=== PATIENT | male | born 1960 | race Two or more races ===

== ENCOUNTER 2023-03-20 18:15 | Emergency (ER) | payer OTHER ==
[~2023-03-20] VITALS: Ht 167.6 cm; Wt 105.5 kg
[2023-03-20 18:53] LABS: Basophils # (auto) 0.1 10 ^3/uL (0-0.2); Basophils % (auto) 0.7 % (0.0-2.0); Eosinophils # (auto) 0.1 10 ^3/uL (0-0.8); Eosinophils % (auto) 0.5 % (0.0-7.0); Hematocrit 45.7 % (41.0-53.0); Hemoglobin 15.6 g/dL (13.5-17.5); Lymphocytes # (auto) 3.1 10 ^3/uL (0.4-5.4); Lymphocytes % (auto) 27.3 % (10.0-50.0); Mean Corpuscular Hemoglobin 29.1 pg (28.0-32.0); Mean Corpuscular Volume 85.5 fL (80.0-100.0); Monocytes # (auto) 0.8 10 ^3/uL (0-1.3); Monocytes % (auto) 7.3 % (0.0-12.0); Neutrophils # (auto) 7.3 10 ^3/uL (1.6-8.6); Neutrophils % (auto) 64.2 % (37.0-80.0); Nucleated Red Blood Cells % 0.4 %; Red Blood Cells 5.34 10^6/uL (4.5-5.90); Red Cell Distribution Width 14.1 % (11.8-14.3); White Blood Cell 11.3 10^3/uL (4.4-10.8)
[2023-03-20 19:11] LABS: Albumin 4.1 g/dL (3.4-5.0); BUN/Creatinine Ratio 16.8 (10.0-20.0); Calcium 8.9 mg/dL (8.5-10.1); Potassium 3.7 mmol/L (3.5-5.1)
[2023-03-20 19:13] LABS: Bilirubin, Total 2.4 mg/dL (0.2-1.0); Total Protein 6.9 g/dL (6.4-8.2)
[2023-03-20 23:16] VITALS: BP 144/98; PULSE 98; RESP 20; TEMP 98; O2SAT 100
[2023-03-20] MEDS ORDERED: RIV20T PO (23:35)
== END 2023-03-20 23:47 | disposition home or self-care (01) ==
LOC: ER 18:15
DX: I48.91 Unspecified atrial fibrillation (principal); R07.89 Other chest pain
CPT/HCPCS: 36415; 71046; 80053; 83880; 84484; 85025; 93005

== ENCOUNTER 2025-06-17 07:27 | Emergency (ER) | payer OTHER ==
[~2025-06-17] VITALS: Ht 170.2 cm; Wt 107.0 kg
[~2025-06-17 07:27] MED LIST: RIV20T PO
--- NOTE | 2025-06-17 07:41 | ED.PDOC ---
HPI Comments 65 y.o male with PMHx of SC, HTN, HLD, and AFIB, presents to the ED for a chief complaint of palpitations associated with SOB that started 5 days ago. Patient reports ongoing irregular heart rate detected by his apple watch with the "thumping" sensation. Patient was seen by his house supervisor on 06/03/25 but states then did not experience these symptoms. He denies any nausea, vomiting, diarrhea, abdominal pain, fever, chills or leg swelling. He denies any substance, alcohol or tobacco use. Chief Complaint: Palpitations Time Seen by MD: 07:32 Primary Care Provider: ALFRED Reviewed Notes: Nurses Notes, Medications, Allergies Allergies: Coded Allergies: NO KNOWN ALLERGIES (Unverified , 03/20/23) Home Meds Active Scripts Apixaban Base (ELIQUIS) 5 Mg Tab, 5 MG PO BID for 30 Days, #60 TAB 0 Refills Prov:DONNA TOVAR DO 06/17/25 Metoprolol Tartrate (Metoprolol Tartrate) 50 Mg Tab, 50 MG PO BID for 30 Days, #60 TAB 0 Refills Prov:DONNA TOVAR DO 06/17/25 Rivaroxaban (Xarelto Tablet) 20 Mg Tb, 20 MG PO DAILY, #30 TAB Prov:DILLAN SCHULZ 03/20/23 Information Source: Patient Mode of Arrival: Ambulatory Severity: Moderate Timing: Days (5) Duration: Since onset Onset: At Rest Cardiac Risk Factors: Hyperlipidemia, HTN PE Risk Factors: None History of: SC Modifying Factors: Nothing Associated Signs and Symptoms: SOB, Palpitations Past Medical History PAST MEDICAL HISTORY: AFIB, High Lipids, HTN, SC Surgical History: Hernia Repair Family History Family History: Family hx of heart lance, Family hx of stroke Social History Smoker: Non-Smoker Alcohol: Denies ETOH Use Drugs: Denies Drug Use Lives In: Home Constitutional: denies: chills, diaphoresis, fatigue, fever, malaise, sweats, weakness, others EENTM: denies: blurred vision, double vision, ear bleeding, ear discharge, ear drainage, ear pain, ear ringing, eye pain, eye redness, hearing loss, mouth pain, mouth swelling, nasal discharge, nose bleeding, nose congestion, nose pain, photophobia, tearing, throat pain, throat swelling, voice changes, others Respiratory: reports: SOB at rest, shortness of breath; denies: cough, hemoptysis, orthopnea, SOB with excertion, stridor, wheezing, others Cardiovascular: reports: palpitations; denies: chest pain, dizzy spells, diaphoresis, Dyspnea on exertion, edema, irregular heart beat, left arm pain, lightheadedness, PND, syncope, others Gastrointestinal: denies: abdomen distended, abdominal pain, blood streaked bowels, constipated, diarrhea, dysphagia, difficulty swallowing, hematemesis, melena, nausea, poor appetite, poor fluid intake, rectal bleeding, rectal pain, vomiting, others Genitourinary: denies: burning, dysuria, flank pain, frequency, hematuria, incontinence, penile discharge, penile sore, pain, testicle pain, testicle swelling, urgency, others Neurological: denies: dizziness, fainting, headache, left sided numbness, left sided weakness, numbness, paresthesia, pre-existing deficit, right sided numbness, right sided weakness, seizure, speech problems, tingling, tremors, weakness, others Musculoskeletal: denies: back pain, gout, joint pain, joint swelling, muscle pain, muscle stiffness, neck pain, others Integumetry: denies: bruises, change in color, change in hair/nails, dryness, laceration, lesions, lumps, rash, wounds, others Allergic/Immunocompromised: denies: Difficulty Healing, Frequent Infections, Hives, Itching, others Hematologic/Lymphatic: denies: anemia, blood clots, easy bleeding, easy bruising, swollen glands, others Endocrine: denies: excessive hunger, excessive sweating, excessive thirst, excessive urination, flushing, intolerance to cold, intolerance to heat, unexplained weight gain, unexplained weight loss, others Psychiatric: denies: anxiety, bipolar disorder, depression, hopeless, panic disorder, schizophrenia, sleepless, suicidal, others All Other Systems: Reviewed and Negative Physical Exam General Appearance: No Apparent Distress HEENT: Normal ENT Inspection, Pharynx Normal, TMs Normal Neck: Full Range of Motion, Non-Tender, Normal, Normal Inspection Respiratory: Chest Non-Tender, Lungs Clear, No Accessory Muscle Use, No Respiratory Distress, Normal Breath Sounds Cardiovascular: Irregular, No Edema, No JVD, No Murmur, No Gallop, Tachycardia Breast Exam: Deferred Gastrointestinal: No Organomegaly, Non Tender, No Pulsatile Mass, Normal Bowel Sounds, Soft Genitalia: Deferred Pelvic: Deferred Rectal: Deferred Extremities: No calf tenderness, Normal capillary refill, Normal inspection, Normal range of motion, Non-tender, No pedal edema Musculoskeletal : Apperance: Normal Neurologic: 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 Was a procedure done?: No CP Differential Dx Differential Diagnosis: A-fib, Angina, Electrolyte Disorder, Sinus Tachycardia X-Ray, Labs, Meds, VS Vital Signs Date Time Temp Pulse Resp B/P (MAP) Pulse Ox O2 Delivery O2 Flow Rate FiO2 06/17/25 12:10 87 136/91 06/17/25 10:40 90 06/17/25 09:13 80 06/17/25 07:41 102 06/17/25 07:34 102 06/17/25 07:28 97.6 91 18 153/104 97 97.6 Lab Test 06/17/25 08:37 06/17/25 07:40 Range/Units Troponin I High Sensitivity 4 4 </=54 ng/L White Blood Count 10.1 4.4-10.8 10^3/uL Red Blood Count 5.86 4.5-5.90 10^6/uL Hemoglobin 17.2 13.5-17.5 g/dL Hematocrit 50.0 41.0-53.0 % Mean Corpuscular Volume 85.3 80.0-100.0 fL Mean Corpuscular Hemoglobin 29.3 28.0-32.0 pg Mean Corpuscular Hemoglobin Concent 34.4 32.0-36.0 g/dL Red Cell Distribution Width 13.8 11.8-14.3 % Platelet Count 204 140-450 10^3/uL Mean Platelet Volume 10.4 6.9-10.8 fL Neutrophils (%) (Auto) 75.6 37.0-80.0 % Lymphocytes (%) (Auto) 16.9 10.0-50.0 % Monocytes (%) (Auto) 6.1 0.0-12.0 % Eosinophils (%) (Auto) 0.6 0.0-7.0 % Basophils (%) (Auto) 0.8 0.0-2.0 % Neutrophils # (Auto) 7.6 1.6-8.6 10 ^3/uL Lymphocytes # (Auto) 1.7 0.4-5.4 10 ^3/uL Monocytes # (Auto) 0.6 0-1.3 10 ^3/uL Eosinophils # (Auto) 0.1 0-0.8 10 ^3/uL Basophils # (Auto) 0.1 0-0.2 10 ^3/uL Nucleated Red Blood Cells 0.1 % Sodium Level 141 136-145 mmol/L Potassium Level 4.0 3.5-5.1 mmol/L Chloride Level 105 98-107 mmol/L Carbon Dioxide Level 25 20-31 mmol/L Anion Gap 11 5-15 Blood Urea Nitrogen 9 9-23 mg/dL Creatinine 1.14 0.700-1.30 mg/dL Glomerular Filtration Rate Calc 72 >90 mL/min BUN/Creatinine Ratio 7.9 L 10.0-20.0 Serum Glucose 148 H 74-106 mg/dL Calcium Level 9.1 8.7-10.4 mg/dL Magnesium Level 2.2 1.6-2.6 mg/dL B-Type Natriuretic Peptide 142.79 0-100 pg/mL Current Medications Medications (Trade) Dose Ordered Sig/Danie Route Start Time Stop Time Status Last Admin Aspirin 162 mg ONCE ONCE PO 06/17/25 07:45 06/17/25 08:00 DC 06/17/25 07:57 Metoprolol Tartrate (Lopressor Tablet) 50 mg ONCE ONCE PO 06/17/25 10:30 06/17/25 10:31 DC 06/17/25 12:10 IV Hep-Lock was established. For the elevated heart rate the patient was given Lopressor 50 mg p.o.. The patient was also given aspirin 162 mg by mouth. The patient's CBC and chemistry panel are within normal limits The troponin level is negative At this time, the patient has a [facility] patient The patient was evaluated by the [facility] doctor and they are setting the patient up for outpatient management. The patient had a prescription sent to address the atrial fibrillation. The patient also has an appointment with the house supervisor The patient is being discharged at this time Images Reviewed?: Images reviewed and evaluated by me Time of 1ST Reevaluation: 07:40 Reevaluation 1ST: Unchanged Patient Education/Counseling: Diagnosis, Treatment, Prognosis Family Education/Counseling: No Family Present SEPSIS Sepsis Screen Date sepsis recognized/suspect: Jun 17, 2025 Time Sepsis recognized/suspect: 728 Recent Procedure: No On Antibiotic Therapy: No Respiratory Rate >20: No Heart Rate >90: No Temp<36 C (96.8 F) or >38.3 C: No SBP <90 or MAP <65 mmHG: No New Acute Mental Status Change: No Is the patient on CPAP, BIPAP,: No Physician Orders Heplock Iv (06/17/25 07:36) Hand Cell Tuber (06/17/25 07:36) Blood Pressure (06/17/25 07:36) Pulse Oximetry (06/17/25 07:36) Urinalysis (06/17/25 07:36) Electrocardigram (06/17/25 07:36) Electrocardigram (06/17/25 08:36) Electrocardigram (06/17/25 10:36) Chest Portable (06/17/25 07:40) Thyroid Stimulating Hormone (06/17/25 11:59) Free T4 (Free Thyroxine) (06/17/25 11:59) Vital Signs Date Time Temp Pulse Resp B/P (MAP) Pulse Ox O2 Delivery O2 Flow Rate FiO2 06/17/25 12:10 87 136/91 06/17/25 10:40 90 06/17/25 09:13 80 06/17/25 07:41 102 06/17/25 07:34 102 06/17/25 07:28 97.6 91 18 153/104 97 97.6 Laboratory Tests Test 06/17/25 07:40 White Blood Count 10.1 10^3/uL (4.4-10.8) Medications Medications Dose Ordered Sig/Danie Route Start Time Stop Time Status Last Admin Dose Admin Aspirin 162 mg ONCE ONCE PO 06/17/25 07:45 06/17/25 08:00 DC 06/17/25 07:57 Metoprolol Tartrate 50 mg ONCE ONCE PO 06/17/25 10:30 06/17/25 10:31 DC 06/17/25 12:10 Departure 1 Departure Time of Disposition: 12:17 Impression: Primary Impression: New onset a-fib Disposition: HOME / SELF CARE / HOMELESS Condition: Fair e-Prescriptions Apixaban Base (ELIQUIS) 5 Mg Tab 5 MG PO BID for 30 Days, #60 TAB 0 Refills Prov: DONNA TOVAR DO 06/17/25 Metoprolol Tartrate (Metoprolol Tartrate) 50 Mg Tab 50 MG PO BID for 30 Days, #60 TAB 0 Refills Prov: DONNA TOVAR DO 06/17/25 Discharged With: Self Critical Care Note Critical Care Time?: No Stability Stability form required: No Heart Score Heart Score: Heart Score Response (Comments) Value History Moderate Suspicious 1 EKG Repolarization Disturb 1 Age 45-64 1 Risk Factors 1 or 2 risk factors 1 Troponin Normal limit 0 Total 4 I personally scribed for KELLEY GRIFFITH MD ([email or web address]) on 06/17/25 at 07:41. Electronically submitted by Raya Pollack ([facility]). KELLEY GRIFFITH MD Jun 17, 2025 07:41
[2025-06-17 07:56] LABS: Hematocrit 50.0 % (41.0-53.0); Hemoglobin 17.2 g/dL (13.5-17.5); Mean Corpuscular Hemoglobin 29.3 pg (28.0-32.0); Mean Corpuscular Volume 85.3 fL (80.0-100.0); Nucleated Red Blood Cells % 0.1 %
[2025-06-17 08:01] VITALS: PULSE 95; RESP 12; TEMP 98; O2SAT 96
[2025-06-17 08:01] LABS: Chloride 105 mmol/L (98-107); Potassium 4.0 mmol/L (3.5-5.1); Sodium 141 mmol/L (136-145)
[2025-06-17 08:02] LABS: Anion Gap 11 (5-15); Calcium 9.1 mg/dL (8.7-10.4); Carbon Dioxide 25 mmol/L (20-31)
[2025-06-17 08:07] LABS: BUN/Creatinine Ratio 7.9 (10.0-20.0); Blood Urea Nitrogen 9 mg/dL (9-23); Glucose 148 mg/dL (74-106)
[2025-06-17 08:08] LABS: Magnesium 2.2 mg/dL (1.6-2.6)
--- NOTE | 2025-06-17 08:50 | DVH ---
INDICATION: Palpitations TECHNIQUE: Frontal view of the chest. COMPARISON: XY CHEST TWO VIEWS ROUTINE on DOS: 03/20/23 FINDINGS: . The heart and mediastinal contours are grossly unremarkable. There is no evidence of pleural disease. The lungs are clear. The bony structures of the chest are intact without fracture. IMPRESSION: 1. No evidence of acute disease.
[2025-06-17] MEDS ORDERED: APIX5TAB PO ×2 (10:42→10:44)
[2025-06-17] MEDS ORDERED: METO-158 PO (10:42)
--- NOTE | 2025-06-17 12:04 | DVHDS2 ---
Discharge Summary Date of Admission Date of Discharge: Jun 17, 2025 Labs/Diagnostic Data: Laboratory Results Test 06/17/25 08:37 06/17/25 07:40 Troponin I High Sensitivity 4 ng/L (</=54) White Blood Count 10.1 10^3/uL (4.4-10.8) Red Blood Count 5.86 10^6/uL (4.5-5.90) Hemoglobin 17.2 g/dL (13.5-17.5) Hematocrit 50.0 % (41.0-53.0) Mean Corpuscular Volume 85.3 fL (80.0-100.0) Mean Corpuscular Hemoglobin 29.3 pg (28.0-32.0) Mean Corpuscular Hemoglobin Concent 34.4 g/dL (32.0-36.0) Red Cell Distribution Width 13.8 % (11.8-14.3) Platelet Count 204 10^3/uL (140-450) Mean Platelet Volume 10.4 fL (6.9-10.8) Neutrophils (%) (Auto) 75.6 % (37.0-80.0) Lymphocytes (%) (Auto) 16.9 % (10.0-50.0) Monocytes (%) (Auto) 6.1 % (0.0-12.0) Eosinophils (%) (Auto) 0.6 % (0.0-7.0) Basophils (%) (Auto) 0.8 % (0.0-2.0) Neutrophils # (Auto) 7.6 10 ^3/uL (1.6-8.6) Lymphocytes # (Auto) 1.7 10 ^3/uL (0.4-5.4) Monocytes # (Auto) 0.6 10 ^3/uL (0-1.3) Eosinophils # (Auto) 0.1 10 ^3/uL (0-0.8) Basophils # (Auto) 0.1 10 ^3/uL (0-0.2) Nucleated Red Blood Cells 0.1 % Sodium Level 141 mmol/L (136-145) Potassium Level 4.0 mmol/L (3.5-5.1) Chloride Level 105 mmol/L (98-107) Carbon Dioxide Level 25 mmol/L (20-31) Anion Gap 11 (5-15) Blood Urea Nitrogen 9 mg/dL (9-23) Creatinine 1.14 mg/dL (0.700-1.30) Glomerular Filtration Rate Calc 72 mL/min (>90) BUN/Creatinine Ratio 7.9 (10.0-20.0) Serum Glucose 148 mg/dL (74-106) Calcium Level 9.1 mg/dL (8.7-10.4) Magnesium Level 2.2 mg/dL (1.6-2.6) B-Type Natriuretic Peptide 142.79 pg/mL (0-100) Other Laboratory Tests 06/17/25 07:40 Brief Hx & Hospital Course: Patient is a 65 past medical history of hypertension, atrial fibrillation on metoprolol ER but not anticoagulation, who presents with complaints of palpitations. Patient arrived to the ER with vitals notable for hypertension blood pressure noted to be 153/104 with pulse fluctuating from 91-102. CBC was done which was within normal limits. BMP was done which was also within normal limits. Troponin was nonelevated x 2. BNP was nonelevated. Chest x-ray was done which did not reveal any acute disease. TSH was ordered. Patient was started on metoprolol to tartrate 50 mg p.o. and his heart rate improved to the 80s and 90s. Patient was monitored for several hours. Chart review shows that patient takes amlodipine 10 mg daily, Lipitor 40 mg and metoprolol XL 25 mg extended release daily. Patient will be discharged on metoprolol to tartrate 50 mg p.o. twice daily and is to hold his amlodipine if SBP less than 120 on manual blood pressure checks at home. Patient will continue atorvastatin 40 mg p.o. daily as well. Patient was also discharged on Eliquis 5 mg p.o. twice daily given [id number] score of 1 with new onset atrial fibrillation. Medications sent to in-house hospital pharmacy for patient pick-up. An appointment is made stat with cardiology for follow-up for new onset atrial fibrillation and for TTE evaluation. Appointment scheduled on 06/[address] Cazares. Patient aware. Patient was monitored for several hours. Vitals were noted to be stable prior to discharge. He was given ER return precautions. [facility] case management coordinating close follow-up and monitoring. Condition at Discharge: Good Final Diagnosis/Problems List Atrial Fibrillation Secondary Diagnosis: Hypertension Discharge Disposition: Home Discharge Instruct/Medications Scheduled Apixaban Base (Eliquis), 5 MG PO BID Metoprolol Tartrate (Metoprolol Tartrate), 50 MG PO BID Rivaroxaban (Xarelto Tablet), 20 MG PO DAILY Discharge Statement: "Patient was advised to return to the ER or call 911 if any headaches, dizziness, shortness of breath, chest pain, abdominal pain, bleeding, fevers, or worsening of medical condition. Patient was counseled about treatment plan, medications, possible side effects, patientverbalized understanding. All questions were answered to the best of my ability. This discharge took greater then 30 minutes in planning, reviewing documentation, counseling the patient, and discussing with other team members." ASSESSMENT ASSESSMENT Assessment DONNA TOVAR DO Jun 17, 2025 12:04
[2025-06-17] MEDS: METOPROLOL TARTRATE 50 MG TAB PO ONE (12:10)
[2025-06-17 12:47] LABS: Urine Protein, UAD Negative (Negative)
[2025-06-17 13:00] VITALS: BP 126/93; PULSE 78; RESP 13; O2SAT 95
--- NOTE | 2025-06-20 09:42 | ECG ---
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
--- NOTE | 2025-06-20 09:42 | ECG ---
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
--- NOTE | 2025-06-20 09:42 | ECG ---
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
== END 2025-06-17 12:16 | disposition home or self-care (01) ==
LOC: ER 07:27
DX: I48.91 Unspecified atrial fibrillation (principal); I10 Essential (primary) hypertension; E78.5 Hyperlipidemia, unspecified; I25.2 Old myocardial infarction; Z79.899 Other long term (current) drug therapy; Z79.01 Long term (current) use of anticoagulants; Z98.890 Other specified postprocedural states
CPT/HCPCS: 36415; 71045; 80048; 81001; 83735; 83880; 84439; 84443; 84484; 85025; 93005

== ENCOUNTER 2025-07-19 22:37 | Emergency (ER) | payer OTHER ==
[~2025-07-19] VITALS: Ht 167.6 cm; Wt 109.9 kg
[~2025-07-19 22:37] MED LIST changes: +APIX5TAB PO; +METO-158 PO
--- NOTE | 2025-07-19 23:11 | ED.PDOC ---
HPI Comments HPI: Initial Vitals BP: 199/94 HR: 69 RR: 16 O2: 96 Temp: 97.3 Past Medical History: Afib, HTN, High Lipids, CO Past Surgical History: Hernia Repair Social History: None Medications: Allergies: NKA mcmurtrey, htn HPI: Poor Historian. 65-year-old male presents to emergency depart for evaluation of one day headache. Patient has checked his blood pressure was in the 190s systolically. Patient states they recently discontinued his amlodipine. They have added other blood pressure medications instead. 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 Patient states compliance with all his medications. Denies any other acute symptoms. Past Medical History: Hypertension, hyperlipidemia, atrial fibrillation on Eliquis Past Surgical History: Umbilical hernia repair REVIEW OF SYSTEMS: CONSTITUTIONAL: Denies acute: fever, diaphoresis, chills, generalized weakness. HEAD: Denies acute: , photophobia Eyes: Denies acute: Double vision, vision loss, eye pain, eye discharge. EARS: Denies acute: tinnitus, hearing loss, ear discharge, ear pain, THROAT: Denies acute: sore throat, swelling, difficulty swallowing , pain with swallowing, change in voice. NECK: Denies acute: neck pain, neck swelling, stiff neck. HEART: Denies acute : chest pain, palpitations, LUNGS: Denies acute: SOB, wheezing, cough, hemoptysis ABDOMEN: Denies acute: abdominal pain, Nausea, Vomiting, diarrhea, melena , hematemesis, hematochezia SKIN: Denies acute: rash, redness, lesions, itchiness. EXTREMITIES: Denies acute: calf pain, numbness, tingling, weakness, denies pain in extremity. Denies acute: Low back pain. Neuro: Denies acute: focal neurological deficit, motor or sensory focal neurological deficit, tremors, seizure like activity, confusion, dizziness, change in mental status, loss of bowel or bladder function, cauda equina like symptoms. : Denies acute: dysuria, hematuria, flank pain, increase in urinary frequency. PSYCH: Denies acute: hallucination, suicidal ideation, homicidal ideation. PHYSICAL EXAM: General: -----no---acute distress, awake and alert. Head: normocephalic, atraumatic. No raccoon's eyes, no alvarenga sign. Neck: supple, trachea is midline, no swelling. Throat: Normal phonation. Eyes:, no erythema, no purulent discharge, no proptosis, no icterus. Heart: regular rate, regular rhythm, no significant murmur appreciated. Lungs: no apparent respiratory distress, Able to speak in full sentences. No wheezing, no rhonchi, no crackles. No stridors Clear to auscultation bilaterally. Abdomen: non tender to palpation, non distended, soft, no guarding, no rebound, + bowel sounds. Obese Neuro: Awake, Alert, oriented to name, self, situation, follows commands GCS=15. Speech is normal. Skin: no petechia, no purpura, no cyanosis, non-pale, not jaundice. Lower extremities: --trace bilateral- Pitting edema no deformity, no focal swelling, no calf TTP. Makes eye contact. moves all four extremities. Face: no apparent facial droop. Ambulating in the ED independently. ED COURSE: DISCLAIMER: This medical document was created using an electronic medical record system with voice recognition software and computerized dictation system. Although this document has been carefully reviewed, there might still be some phonetic and typographical errors. Occasional wrong-word or "sound-alike" substitutions may have occurred due to the inherent limitations of voice recognition software. These areas are purely typographical due to imperfections of the software programs and do not reflect any compromise in the patient's medical care. Please read the chart carefully and recognize, using context, where these substitutions have occurred. Chief Complaint: High Blood Pressure Time Seen by MD: 23:04 Primary Care Provider: ALFRED Reviewed Notes: Medications, Allergies Allergies: Coded Allergies: NO KNOWN ALLERGIES (Unverified , 03/20/23) Home Meds Active Scripts Apixaban Base (ELIQUIS) 5 Mg Tab, 5 MG PO BID for 30 Days, #60 TAB 0 Refills Prov:DONNA TOVAR DO 06/17/25 Metoprolol Tartrate (Metoprolol Tartrate) 50 Mg Tab, 50 MG PO BID for 30 Days, #60 TAB 0 Refills Prov:DONNA TOVAR DO 06/17/25 Rivaroxaban (Xarelto Tablet) 20 Mg Tb, 20 MG PO DAILY, #30 TAB Prov:DILLAN SCHULZ PAC 03/20/23 Information Source: Patient Mode of Arrival: Ambulatory Was a procedure done? Was a procedure done?: No CP Differential Dx Differential Diagnosis: N/A Differential Diagnosis: HTN Essential, Other (DDX include renal disease, thyroid disease, electrolyte abnormality, increased salt intake, medications non-compliance, undiagnosed HTN, Hypertensive crisis, hypertensive urgency., drug toxicity.) X-Ray, Labs, Meds, VS Vital Signs Date Time Temp Pulse Resp B/P (MAP) Pulse Ox O2 Delivery O2 Flow Rate FiO2 07/19/25 23:46 98.1 63 14 158/92 (114) 93 98.1 07/19/25 23:30 71 198/115 07/19/25 22:40 97.3 69 16 199/94 96 97.3 Lab Test 07/19/25 23:45 07/19/25 22:56 Range/Units Troponin I High Sensitivity < 3 L 3 L </=54 ng/L White Blood Count 9.9 4.4-10.8 10^3/uL Red Blood Count 5.63 4.5-5.90 10^6/uL Hemoglobin 16.3 13.5-17.5 g/dL Hematocrit 48.6 41.0-53.0 % Mean Corpuscular Volume 86.2 80.0-100.0 fL Mean Corpuscular Hemoglobin 28.9 28.0-32.0 pg Mean Corpuscular Hemoglobin Concent 33.6 32.0-36.0 g/dL Red Cell Distribution Width 14.1 11.8-14.3 % Platelet Count 175 140-450 10^3/uL Mean Platelet Volume 10.2 6.9-10.8 fL Neutrophils (%) (Auto) 64.0 37.0-80.0 % Lymphocytes (%) (Auto) 26.2 10.0-50.0 % Monocytes (%) (Auto) 7.8 0.0-12.0 % Eosinophils (%) (Auto) 1.3 0.0-7.0 % Basophils (%) (Auto) 0.7 0.0-2.0 % Neutrophils # (Auto) 6.4 1.6-8.6 10 ^3/uL Lymphocytes # (Auto) 2.6 0.4-5.4 10 ^3/uL Monocytes # (Auto) 0.8 0-1.3 10 ^3/uL Eosinophils # (Auto) 0.1 0-0.8 10 ^3/uL Basophils # (Auto) 0.1 0-0.2 10 ^3/uL Nucleated Red Blood Cells 0.0 % Sodium Level 140 136-145 mmol/L Potassium Level 4.2 3.5-5.1 mmol/L Chloride Level 104 98-107 mmol/L Carbon Dioxide Level 26 20-31 mmol/L Anion Gap 10 5-15 Blood Urea Nitrogen 8 L 9-23 mg/dL Creatinine 1.00 0.700-1.30 mg/dL Glomerular Filtration Rate Calc 84 >90 mL/min BUN/Creatinine Ratio 8.0 L 10.0-20.0 Serum Glucose 147 H 74-106 mg/dL Calcium Level 9.4 8.7-10.4 mg/dL Total Bilirubin 1.5 H 0.2-1.0 mg/dL Aspartate Amino Transferase (AST) 23 13-40 U/L Alanine Aminotransferase (ALT) 38 7-40 U/L Alkaline Phosphatase 98 46-116 U/L Total Protein 7.4 5.7-8.2 g/dL Albumin 4.6 3.2-4.8 g/dL Current Medications Medications (Trade) Dose Ordered Sig/Danie Route Start Time Stop Time Status Last Admin Labetalol HCl (Labetalol HCl) 5 mg ONCE ONCE IV 07/19/25 23:00 07/19/25 23:01 DC 07/19/25 23:30 Time of 1ST Reevaluation: 23:36 Reevaluation 1ST: Unchanged Patient Education/Counseling: Diagnosis, Treatment Family Education/Counseling: No Family Present Departure 1 Departure Time of Disposition: 00:42 Impression: Primary Impression: Hypertensive urgency Disposition: 01 HOME / SELF CARE / HOMELESS Condition: Stable Additional Instructions: Additional instructions: Please read all instructions provided in this packet carefully. You MUST follow-up with your primary care/family doctor in 1 to 2 days. If you are unable to see your primary care/family doctor, please return to our emergency room for re-assessment and re-evaluation in 1 to 2 days. Return to the emergency room here in our facility or to the nearest ER RADU if your symptoms change or worsen. CONSULTATIONS: you MUST Follow-up for consultation as soon as possible with: -cardiology in 1-2 days. Please call for appointment. You MUST call the consultants office yourself to make an appointment. You may need to arrange that through your insurance and/or your primary/family doctor. If you are unable to see the lifestyle consultant in 1 to 2 days, you must return to our emergency room (or any other ER of your choice) for re-assessment and re- evaluation. Adequate fluid hydration. Although you have been discharged from the Emergency Department, this does not mean that you have a "clean bill of health". No definitive diagnosis for your symptoms has been made today. It is possible that you are in the process of developing a serious illness. This is why you must return to the ED without fail if any new or worsening symptoms develop. Monitoring blood pressure at home at least 3 times a day. Below is a copy of your radiological report for follow up: [place] [id number] Ph: [phone] DIAGNOSTIC IMAGING Diagnostic Imaging Report : [id number] Signed PATIENT: SERA BRADFORD ACCT: [id number] UNIT: [id number] : 1960 LOC: ER ROOM / BED: / AGE / SEX: 65 / M ADM STATUS: REG ER SERVICE 50 ORDERING PHYSICIAN: NICK GUERRA DO PROCEDURE(s): HWOCT - HEAD WITHOUT CONTRAST REASON: QUESADA, HTN ORDER NUMBER(s): [id number], ACCESSION NUMBER(s): [id number] EXAM: CT HEAD WITHOUT CONTRAST INDICATION: QUESADA, HTN TECHNIQUE: CT of the head without intravenous contrast. Radiation Dose Information: CT Dose: CTDI volume is 61.53 mGy. Dose-length product is 1230.66 mGy*cm The dose indicators for CT are the volume Computed Tomography (CT) Dose Index (CTDIvol) and the Dose Length Product (DLP), and are measured in units of mGy and mGy-cm, respectively. These indicators are not patient dose, but values generated from the CT scanner acquisition factors. The report includes radiation exposure data for exposures received during this examination. COMPARISON: None FINDINGS: There is no evidence of acute intracranial hemorrhage, extra-axial collection, mass effect, midline shift, herniation or hydrocephalus. The ventricles, sulci and cisterns are age appropriate. The fenton-white differentiation is intact. Patchy periventricular and subcortical white matter hypoattenuation is nonspecific but may be related to small vessel ischemic disease. The visualized paranasal sinuses and mastoid air cells are clear. The surrounding soft tissues and osseous structures are unremarkable. IMPRESSION: No acute intracranial abnormality. ATED BY: BHAVNA CORONA MD DICTATED DATE/TIME: 07/19/252325 SIGNED BY: BHAVNA CORONA MD SIGNED DATE/TIME: 07/19/252325 CC: Discharged With: Self Critical Care Note Critical Care Time?: Yes (35 min-critical care time only) Heart Score Heart Score: Heart Score Response (Comments) Value History N/A 0 EKG N/A 0 Age N/A 0 Risk Factors N/A 0 Troponin N/A 0 Total 0 I personally scribed for NICK GUERRA DO ([email or web address]) on 07/19/25 at 23:11. Electronically submitted by Char Trevino ([facility]). NICK GUERRA DO Jul 19, 2025 23:11
[2025-07-19 23:15] LABS: Hematocrit 48.6 % (41.0-53.0); Hemoglobin 16.3 g/dL (13.5-17.5); Mean Corpuscular Hemoglobin 28.9 pg (28.0-32.0); Mean Corpuscular Volume 86.2 fL (80.0-100.0); Nucleated Red Blood Cells % 0.0 %
--- NOTE | 2025-07-19 23:28 | DVH ---
CHEST RADIOGRAPH INDICATION: HTN TECHNIQUE: Single frontal view of the chest was obtained COMPARISON: XY CHEST PORTABLE on DOS: 06/17/25 FINDINGS: Lungs and pleural spaces are clear. Cardiac silhouette and sydnee are within normal limits. Bones and soft tissues demonstrate no significant abnormality. IMPRESSION: No acute disease.
--- NOTE | 2025-07-19 23:29 | DVH ---
EXAM: CT HEAD WITHOUT CONTRAST INDICATION: QUESADA, HTN TECHNIQUE: CT of the head without intravenous contrast. Radiation Dose Information: CT Dose: CTDI volume is 61.53 mGy. Dose-length product is 1230.66 mGy*cm The dose indicators for CT are the volume Computed Tomography (CT) Dose Index (CTDIvol) and the Dose Length Product (DLP), and are measured in units of mGy and mGy-cm, respectively. These indicators are not patient dose, but values generated from the CT scanner acquisition factors. The report includes radiation exposure data for exposures received during this examination. COMPARISON: None FINDINGS: There is no evidence of acute intracranial hemorrhage, extra-axial collection, mass effect, midline shift, herniation or hydrocephalus. The ventricles, sulci and cisterns are age appropriate. The fenton-white differentiation is intact. Patchy periventricular and subcortical white matter hypoattenuation is nonspecific but may be related to small vessel ischemic disease. The visualized paranasal sinuses and mastoid air cells are clear. The surrounding soft tissues and osseous structures are unremarkable. IMPRESSION: No acute intracranial abnormality.
[2025-07-19] MEDS: LABETALOL HCL 20 MG/4 ML VL IV ONE (23:30)
[2025-07-19 23:39] LABS: Alanine Aminotransferase 38 U/L (7-40); Albumin 4.6 g/dL (3.2-4.8); Alkaline Phosphatase 98 U/L (46-116); Anion Gap 10 (5-15); BUN/Creatinine Ratio 8.0 (10.0-20.0); Calcium 9.4 mg/dL (8.7-10.4); Carbon Dioxide 26 mmol/L (20-31); Chloride 104 mmol/L (98-107); Potassium 4.2 mmol/L (3.5-5.1); Sodium 140 mmol/L (136-145); Total Protein 7.4 g/dL (5.7-8.2)
[2025-07-19 23:41] LABS: Bilirubin, Total 1.5 mg/dL (0.2-1.0); Blood Urea Nitrogen 8 mg/dL (9-23); Glucose 147 mg/dL (74-106)
[2025-07-20 01:19] VITALS: BP 158/93; PULSE 59; RESP 18; TEMP 98.4; O2SAT 97
== END 2025-07-20 01:22 | disposition home or self-care (01) ==
LOC: ER 22:37
DX: I10 Essential (primary) hypertension (principal); E78.5 Hyperlipidemia, unspecified; I48.91 Unspecified atrial fibrillation; Z79.899 Other long term (current) drug therapy; Z98.890 Other specified postprocedural states
CPT/HCPCS: 36415; 70450; 71045; 80053; 84484; 85025; 96374